=== PATIENT | female | born 1990 | race Caucasian/White ===

== ENCOUNTER 2019-03-21 18:07 | Emergency (ER) | payer SELFPAY ==
[~2019-03-21] VITALS: Ht 160 cm; Wt 80.0 kg
[2019-03-21 18:14] VITALS: BP 150/104
[2019-03-21] MEDS ORDERED: AZIT250T PO (18:58)
[2019-03-21] MEDS ORDERED: TRIA15CR61 TOP (18:58)
== END 2019-03-21 19:10 | disposition home or self-care (01) ==
LOC: ER 18:09
DX: R05 Cough (principal); L30.9 Dermatitis, unspecified; F17.200 Nicotine dependence, unspecified, uncomplicated; Z79.2 Long term (current) use of antibiotics; Z79.899 Other long term (current) drug therapy
CPT/HCPCS: 99283